=== PATIENT | female | born 1970 | race Caucasian/White ===

== ENCOUNTER 2018-03-27 14:47 | Emergency (ER) | payer OTHER ==
[~2018-03-27] VITALS: Ht 147.3 cm; Wt 74.8 kg
--- NOTE | ~2018-03-27 | EKG ---
[place], [place] ELECTROCARDIOGRAM REPORT NAME: ONEIL MENA UNIT #: [id number] ROOM: DOCTOR: EPIPHANY DRAFT REPORT BIRTHDATE: [birth year] [facility] Test Date: 2018-03-27 Test Time: 15:27:24 Pat Name: ONEIL MENA Department: Room: Gender: F [employer] Officer: Yeni Louis : 1970 Requested By: YARON WYNN Order Number: [id number] Reading MD: Fletcher Mayorga MD Measurements Intervals [place] Rate: 77 P: -18 IN: 153 QRS: 12 QRSD: 102 T: 25 QT: 381 QTc: 432 Interpretive Statements Sinus rhythm Low voltage, precordial leads Electronically Signed On 03-27-2018 20:49:59 PDT by Fletcher Mayorga MD CM:EKGRPT:ELECTROCARDIOGRAM REPORT [id number] YARON WYNN EPIPHANY DRAFT REPORT YARON WYNN
[~2018-03-27 14:47] MED LIST: ADIPEX-P37.5 MG PO; ALLEGRA180 MG PO; CAMILA0.35 MG PO; CLONAZEPAM1 MG PO; CYMBALTA30 MG PO; CYMBALTA60 M1 PO; DEPO-PROVER150 MG/M1 PO; FETZIMA80 M1 PO; FLEXERIL5 MG PO; HYDROCODONE BIT1 T11 PO; KLONOPIN1 MG PO; LATU120T PO; LATU40TA PO; MOTRIN800 MG PO; Phenergan25 MG PO; SYMBICORT1 AE1 INH; TRAMADOL HCL50 MG PO; TRAZADONE HYDR100 MG PO; TRIXAICIN HP0.075% T; VICO75300 PO; VICODIN 5/500 505 MG PO; VICODIN ES 7501 TAB PO; VITAMIN D50000 I3 PO; ZANTAC 150150 MG PO
[2018-03-27 14:50] VITALS: BP 147/85
[2018-03-27 15:35] LABS: BASO # 0.1 10*3/uL (0.0-0.1); EOS # 0.2 10*3/uL (0.0-0.4); EOS % 2.6 % (1.0-4.0); HEMATOCRIT 41.5 % (37.0-47.0); HEMOGLOBIN 13.4 g/dl (12.0-16.0); LYMPH # 1.9 10*3/uL (1.3-4.4); MEAN CELL VOLUME 89.1 fl (81.0-99.0); MEAN CORPUSCULAR HGB 28.8 pg (27.0-31.0); MEAN CORPUSCULAR HGB CONC 32.3 g/dl (33.0-37.0); MEAN PLATELET VOLUME 9.3 fl (9.6-12.3); MONO # 0.6 10*3/uL (0.1-1.0); NEUT # 3.6 10*3/uL (2.3-7.9); NEUT % 57.2 % (47.0-73.0); PLATELET COUNT AUTOMATED 273 10*3/uL (130-400); RED BLOOD COUNT 4.66 10*6/uL (4.10-5.10); RED CELL DISTRI WIDTH 14.6 % (0-14.5); WHITE BLOOD COUNT 6.2 10*3/uL (4.8-10.8)
[2018-03-27 15:41] LABS: BILIRUBIN NEGATIVE (NEGATIVE); BLOOD NEGATIVE (NEGATIVE); CLARITY CLEAR (CLEAR); COLOR YELLOW (YELLOW); GLUCOSE NEGATIVE (NEGATIVE); KETONE NEGATIVE (NEGATIVE); LEUKO ESTERASE NEGATIVE (NEGATIVE); NITRITE NEGATIVE (NEGATIVE); PH 6.5 (5.0-9.0); UROBILINOGEN 0.2 E.U./dl (0.2-1.0)
[2018-03-27 15:43] LABS: BACTERIA 1+; EPITHELIAL CELLS 30-35
[2018-03-27 15:43] LABS: ACT PARTIAL THROMBO TIME 24.9 SECONDS (20.8-31.5); INTERNATIONAL NORM RATIO 0.9 (2.0-3.5)
[2018-03-27 15:52] LABS: ALBUMIN 3.5 gm/dl (3.1-4.5); ALKALINE PHOSPHATASE 94 U/L (45-117); BUN 9 mg/dl (7-24); CHLORIDE 106 mmol/L (98-107); CREATININE 0.71 mg/dL (0.55-1.02); LIPASE 77 U/L (73-393); SGOT/AST 17 IU/L (3-35); SGPT/ALT 22 U/L (12-78); SODIUM 141 mmol/L (136-145); TOTAL PROTEIN 6.8 gm/dL (6.4-8.2)
[2018-03-27 15:55] LABS: TROPONIN I < 0.015 ng/ml (<0.045)
[2018-03-27] MEDS ORDERED: CLINDAMYCIN HC300 MG PO (16:22)
== END 2018-03-27 16:28 | disposition home or self-care (01) ==
LOC: ED 14:47
PROVIDERS: Nurse Practitioner Family
DX: L03.116 Cellulitis of left lower limb (principal); R03.0 Elevated blood-pressure reading, without diagnosis of hypertension; G89.29 Other chronic pain; J44.9 Chronic obstructive pulmonary disease, unspecified; F17.200 Nicotine dependence, unspecified, uncomplicated; Z88.0 Allergy status to penicillin; Z91.030 Bee allergy status; Z98.890 Other specified postprocedural states; Z98.51 Tubal ligation status

== ENCOUNTER 2018-04-29 23:26 | Emergency (ER) | payer OTHER ==
[~2018-04-29] VITALS: Ht 147.3 cm; Wt 74.8 kg
[~2018-04-29 23:26] MED LIST changes: +CLINDAMYCIN HC300 MG PO
[2018-04-29 23:30] VITALS: BP 131/85
== END 2018-04-30 00:47 | disposition home or self-care (01) ==
LOC: ED 23:26
DX: S51.812A Laceration without foreign body of left forearm, initial encounter (principal); S61.213A Laceration without foreign body of left middle finger without damage to nail, initial encounter; G89.29 Other chronic pain; J44.9 Chronic obstructive pulmonary disease, unspecified; F17.200 Nicotine dependence, unspecified, uncomplicated; Z23 Encounter for immunization; Z98.890 Other specified postprocedural states; Z91.030 Bee allergy status; Z88.0 Allergy status to penicillin; Z79.2 Long term (current) use of antibiotics; Z79.899 Other long term (current) drug therapy; W26.8XXA Contact with other sharp object(s), not elsewhere classified, initial encounter; Y93.89 Activity, other specified; Y92.89 Other specified places as the place of occurrence of the external cause; Y99.8 Other external cause status

== ENCOUNTER 2018-11-27 15:30 | Emergency (ER) | payer OTHER ==
[~2018-11-27] VITALS: Ht 147.3 cm; Wt 81.6 kg
[2018-11-27 16:18] LABS: BILIRUBIN NEGATIVE (NEGATIVE); BLOOD 2+ (NEGATIVE); CLARITY CLEAR (CLEAR); COLOR YELLOW (YELLOW); GLUCOSE NEGATIVE (NEGATIVE); KETONE NEGATIVE (NEGATIVE); LEUKO ESTERASE NEGATIVE (NEGATIVE); NITRITE NEGATIVE (NEGATIVE); PH 5.5 (5.0-9.0); UROBILINOGEN 0.2 E.U./dl (0.2-1.0)
[2018-11-27 16:18] LABS: BASO # 0.1 10*3/uL (0.0-0.1); BASO % 0.9 % (0.0-1.0); EOS # 0.3 10*3/uL (0.0-0.4); EOS % 3.7 % (1.0-4.0); HEMATOCRIT 42.1 % (37.0-47.0); HEMOGLOBIN 13.8 g/dl (12.0-16.0); LYMPH # 2.7 10*3/uL (1.3-4.4); MEAN CELL VOLUME 90.5 fl (81.0-99.0); MEAN CORPUSCULAR HGB 29.7 pg (27.0-31.0); MEAN CORPUSCULAR HGB CONC 32.8 g/dl (33.0-37.0); MEAN PLATELET VOLUME 9.2 fl (9.6-12.3); MONO # 0.7 10*3/uL (0.1-1.0); MONO % 10.2 % (3.0-9.0); NEUT % 45.1 % (47.0-73.0); PLATELET COUNT AUTOMATED 290 10*3/uL (130-400); RED BLOOD COUNT 4.65 10*6/uL (4.10-5.10); RED CELL DISTRI WIDTH 13.7 % (0-14.5); WHITE BLOOD COUNT 6.8 10*3/uL (4.8-10.8)
[2018-11-27 16:27] LABS: URINE AMPHETAMINES > 1000 (1000ng/ml); URINE BARBITURATES < 200 (200ng/ml); URINE BENZODIAZEPINES < 200 (200ng/ml); URINE CANNABINOIDS (THC) > 50 (50ng/ml); URINE COCAINE < 300 (300ng/ml); URINE METHADONE < 300 (300ng/ml); URINE OPIATES < 300 (300ng/ml)
[2018-11-27 16:34] LABS: URINE PHENCYCLIDINE < 25 (25ng/ml)
[2018-11-27 16:36] LABS: ALKALINE PHOSPHATASE 102 U/L (45-117); BUN 14 mg/dl (7-24); CHLORIDE 105 mmol/L (98-107); CREATININE 0.91 mg/dL (0.55-1.02); POTASSIUM 3.7 mmol/L (3.5-5.1); SGOT/AST 16 IU/L (3-35); SGPT/ALT 25 U/L (12-78); SODIUM 141 mmol/L (136-145); TOTAL PROTEIN 7.7 gm/dL (6.4-8.2)
[2018-11-27 16:45] LABS: ACETAMINOPHEN (TYLENOL) < 5.0 ug/ml (10-30)
[2018-11-27 16:53] LABS: BACTERIA 1+; EPITHELIAL CELLS 21-30; RBC 21-30 rbc/hpf (0-2)
[2018-11-27] MEDS ORDERED: TOPIRAMATE100 M2 PO (16:59)
[2018-11-27 18:04] VITALS: BP 104/50
[2018-11-27] MEDS ORDERED: CEPHALEXIN500 M1 PO (18:23)
== END 2018-11-27 18:37 | disposition home or self-care (01) ==
LOC: ED 15:30
PROVIDERS: Nurse Practitioner Family
DX: L03.312 Cellulitis of back [any part except buttock and flank] (principal); G89.29 Other chronic pain; M54.5 Low back pain; J44.9 Chronic obstructive pulmonary disease, unspecified; M79.89 Other specified soft tissue disorders; R60.0 Localized edema; F17.200 Nicotine dependence, unspecified, uncomplicated; Z79.899 Other long term (current) drug therapy; Z88.0 Allergy status to penicillin; Z91.030 Bee allergy status

== ENCOUNTER → 2020-03-19 | Outpatient (CLI) | payer OTHER ==
[~2020-03-19] MED LIST changes: +CEPHALEXIN500 M1 PO; +TOPIRAMATE100 M2 PO
== END | disposition home or self-care (01) ==
LOC: MRI 11:00
PROVIDERS: ATTEND Nurse Practitioner Primary Care
DX: M54.16 Radiculopathy, lumbar region (principal); M96.1 Postlaminectomy syndrome, not elsewhere classified; G89.29 Other chronic pain; Z98.890 Other specified postprocedural states

== ENCOUNTER → 2021-06-22 | Outpatient (CLI) | payer OTHER | END | disposition home or self-care (01) | LOC: COVID19 16:47 | PROVIDERS: ATTEND Student in an Organized Health Care Education/Training Program | DX: U07.1 COVID-19 (principal) ==